=== PATIENT | male | born 1960 | race Caucasian/White ===

== ENCOUNTER 2018-07-13 00:34 | Inpatient (IN) | payer MEDICARE, OTHER ==
[2018-07-13 01:48] LABS: ADD MAN DIFF? NO
[2018-07-13 01:50] LABS: WHITE BLOOD COUNT 8.9 10^3/ul (4.8-10.8)
[2018-07-13 01:50] LABS: BASOPHIL # 0.1 10^3/ul (0.0-0.1); BASOPHILS % 1.3 % (0.0-2.0); EOSINOPHILS # 0.6 10^3/ul (0.0-0.5); EOSINOPHILS % 6.7 % (0.0-7.0); HEMATOCRIT 21.6 % (42.0-52.0); HEMOGLOBIN 7.3 g/dl (14.0-18.0); LYMPHOCYTES # 1.8 10^3/ul (0.8-2.9); LYMPHOCYTES % 20.5 % (15.0-51.0); MEAN CORPUSCULAR HEMOGLOBIN 30.7 pg (29.0-33.0); MEAN CORPUSCULAR HGB CONC 33.8 g/dl (32.0-37.0); MEAN CORPUSCULAR VOLUME 90.8 fl (82.0-101.0); MEAN PLATELET VOLUME 10.3 fl (7.4-10.4); MONOCYTE # 0.7 10^3/ul (0.3-0.9); MONOCYTES % 7.8 % (0.0-11.0); NEUTROPHIL # 5.7 10^3/ul (1.6-7.5); NEUTROPHILS % 63.4 % (39.0-77.0); PLATELET COUNT 220 10^3/UL (140-415); RED BLOOD COUNT 2.38 10^6/ul (4.70-6.10); RED CELL DISTRIBUTION WIDTH 13.4 % (11.5-14.5)
[2018-07-13 02:07] LABS: ALANINE AMINOTRANSFERASE 16 IU/L (13-69); ALBUMIN 2.9 g/dl (3.3-4.9); ALBUMIN/GLOBULIN RATIO 0.85; ALKALINE PHOSPHATASE 118 IU/L (42-121); ANION GAP 14 (5-13); ASPARTATE AMINO TRANSFERASE 15 IU/L (15-46); BILIRUBIN,INDIRECT 0.1 mg/dl (0-1.1); BILIRUBIN,TOTAL 0.1 mg/dl (0.2-1.3); BLOOD UREA NITROGEN 80 mg/dl (7-20); CALCIUM 7.5 mg/dl (8.4-10.2); CARBON DIOXIDE 16 mmol/L (21-31); CHLORIDE 110 mmol/L (97-110); CREATININE 9.53 mg/dl (0.61-1.24); Estimated GFR 6 mL/min (>60); GLUCOSE 98 mg/dl (70-220); SODIUM 140 mmol/L (135-144); TOTAL PROTEIN 6.3 g/dl (6.1-8.1)
[2018-07-13 02:19] LABS: B-TYPE NATRIURETIC PEPTIDE 15500 PG/ML (0-125); TROPONIN-I < 0.012 ng/ml (0.000-0.120)
[2018-07-13] MEDS: INSULIN REGULAR, HUMAN 100 UNIT/1 ML 3ML VIAL IVP (02:26)
[2018-07-13] MEDS: CA CHLORIDE 10% 10 ML SYRINGE IV (02:26)
[2018-07-13] MEDS: DEXTROSE 50% 50 ML SYRINGE IV (02:30)
[2018-07-13] MEDS ORDERED: DEXTROSE 50% 50 ML SYRINGE IV ×3 (02:30→13:00)
[2018-07-13] MEDS ORDERED: ONDANSETRON 4 MG INJ IV (03:00)
[2018-07-13] MEDS ORDERED: ACETAMINOPHEN 325 MG TAB PO ×2 (03:00→03:30)
[2018-07-13] MEDS ORDERED: NACL 0.9% 3 ML SYG IV (03:30)
[2018-07-13] MEDS ORDERED: BISACODYL (EC) 5 MG TAB PO (03:30)
[2018-07-13] MEDS ORDERED: DOCUSATE SODIUM 100 MG CAP PO (03:30)
[2018-07-13] MEDS: FUROSEMIDE 40 MG INJ IV ×2 (03:57→05:42)
[2018-07-13] MEDS: ALBUTEROL/IPRATROPIUM (NEB) 3 ML AMP HHN ×2 (04:41→04:45)
[2018-07-13] MEDS: METOLAZONE 2.5 MG TAB PO (05:00)
[2018-07-13] MEDS ORDERED: HEPARIN 5,000 UNIT/0.5 ML VIAL ×3 (06:41→21:36)
[2018-07-13 06:42] LABS: HEMOGLOBIN A1C 6.1 % (0-5.9)
[2018-07-13 06:48] LABS: IRON 28 ug/dl (35-150)
[2018-07-13 06:49] LABS: MAGNESIUM 2.2 mg/dl (1.7-2.5)
[2018-07-13] MEDS: HEPARIN 5,000 UNIT/1 ML VIAL SC ×3 (06:49→21:53)
[2018-07-13 06:58] LABS: % IRON SATURATION 11 % SAT (22-52); TOTAL IRON BINDING CAPACITY 266 ug/dl (241-421)
[2018-07-13 07:19] LABS: HEPATITIS B SURFACE ANTIGEN NEGATIVE (NEGATIVE)
[2018-07-13 07:24] LABS: FERRITIN 86.6 ng/ml (11.1-264.0)
[2018-07-13 07:36] LABS: HEPATITIS B CORE ANTIBODY NEGATIVE (NEGATIVE); HEPATITIS C VIRAL ANTIBODY NEGATIVE (NEGATIVE); HIV 1&2 ANTIBODY NEGATIVE (NEGATIVE)
[2018-07-13 07:45] LABS: HEPATITIS B SURFACE ANTIBODY NEGATIVE (NEGATIVE)
[2018-07-13 07:52] LABS: URIC ACID 7.3 mg/dl (3.1-7.9)
[2018-07-13 07:52] LABS: CREATINE KINASE 663 IU/L (23-200)
[2018-07-13] MEDS: SODIUM BICARBONATE (IV ADD) 100 MEQ in DEXTROSE 5% 1,000 ML IV (08:48)
[2018-07-13] MEDS: BUMETANIDE 2 MG in DEXTROSE 5% 17 ML IVPB ×2 (08:48→17:29)
[2018-07-13] MEDS ORDERED: SODIUM CHLORIDE 0.9% 1L BAG IV (09:30)
[2018-07-13] MEDS ORDERED: ALBUMIN HUMAN 25% 100 ML IV (09:30)
[2018-07-13 09:48] LABS: AADO2 Arterial 168.6 mmHg (7.0-24.0); Allen Test ACCEPTAB; Arterial Base Excess -7.1 mmol/L (-3.0-3); Arterial Blood Gas Oxygen Sat 93.7 mmHG (95.0-98.0); Arterial COHb 1.3 % (0.0-3.0); Arterial Fraction of Oxyhgb 92.2 % (93.0-99.0); Arterial HCO3 17.6 mmol/L (22.0-26.0); Arterial MetHb 0.3 % (0.0-1.5); Arterial Total Hemglobin 6.2 g/dl (12.0-18.0); Arterial pCO2 31.7 mmhg (35-45); MODE NASAL CANNULA; Site Right Radial
[2018-07-13 10:29] LABS: HAAIG REFLEX REFLEX FILED
[2018-07-13 10:51] LABS: ALANINE AMINOTRANSFERASE 18 IU/L (13-69); ALBUMIN 2.8 g/dl (3.3-4.9); ALKALINE PHOSPHATASE 102 IU/L (42-121); ANION GAP 12 (5-13); ASPARTATE AMINO TRANSFERASE 13 IU/L (15-46); BILIRUBIN,INDIRECT 0.2 mg/dl (0-1.1); BILIRUBIN,TOTAL 0.2 mg/dl (0.2-1.3); BLOOD UREA NITROGEN 81 mg/dl (7-20); CALCIUM 7.3 mg/dl (8.4-10.2); CARBON DIOXIDE 18 mmol/L (21-31); CHLORIDE 109 mmol/L (97-110); CREATININE 9.66 mg/dl (0.61-1.24); Estimated GFR 6 mL/min (>60); GLUCOSE 95 mg/dl (70-220); POTASSIUM 5.5 mmol/L (3.5-5.1); SODIUM 139 mmol/L (135-144); TOTAL PROTEIN 5.9 g/dl (6.1-8.1)
[2018-07-13 10:52] LABS: INR 1.06; PARTIAL THROMBOPLASTIN TIME 36.7 Sec (23.0-35.0); PROTIME 13.9 Sec (11.9-14.9); PT RATIO 1.1
[2018-07-13 11:30] LABS: HEPATITIS B SURFACE ANTIGEN NEGATIVE (NEGATIVE)
[2018-07-13 11:47] LABS: HEPATITIS B CORE ANTIBODY NEGATIVE (NEGATIVE); HEPATITIS C VIRAL ANTIBODY NEGATIVE (NEGATIVE); HIV 1&2 ANTIBODY NEGATIVE (NEGATIVE)
[2018-07-13] MEDS ORDERED: GLUCOSE GEL 15 GRAM TUBE BUCCAL (13:00)
[2018-07-13] MEDS ORDERED: GLUCAGON 1 MG INJ IM (13:00)
[2018-07-13] MEDS ORDERED: GLUCOSE GEL 15 GRAM TUBE PO ×2 (13:00)
[2018-07-13 13:02] LABS: ADD UMIC YES; UR AMORPHOUS CRYSTAL FEW /HPF (NONE SEEN); UR ASCORBIC ACID NEGATIVE (NEGATIVE); UR BILIRUBIN (Dip) NEGATIVE (NEGATIVE); UR BLOOD (Dip) 1+ mg/dL (NEGATIVE); UR CLARITY CLEAR (CLEAR); UR COLOR STRAW (YELLOW); UR GLUCOSE (Dip) 1+ mg/dL (NEGATIVE); UR HYALINE CAST FEW /HPF (NONE SEEN); UR KETONES (Dip) NEGATIVE (NEGATIVE); UR LEUKOCYTE ESTERASE (Dip) NEGATIVE Leu/ul (NEGATIVE); UR NITRITE (Dip) NEGATIVE (NEGATIVE); UR RBC 1 /HPF (0-5); UR SPECIFIC GRAVITY (Dip) 1.011 (1.003-1.030); UR TOTAL PROTEIN (Dip) 3+ mg/dl (NEGATIVE); UR UROBILINOGEN (Dip) NEGATIVE (NEGATIVE); UR WBC 1 /HPF (0-5)
[2018-07-13] MEDS: METOLAZONE 5 MG TAB PO (15:38)
[2018-07-13] MEDS: SOD FERRIC GLUC COMPLX 125 MG in SOD CHLORIDE 0.9% 100 ML IVPB (16:06)
[2018-07-13] MEDS ORDERED: SOD FERRIC GLUC COMPLX 125 MG in SOD CHLORIDE 0.9% 100 ML IVPB (17:00)
[2018-07-13] MEDS: EPOETIN 10000 UNITS/1 ML INJ (ESRD) SC (17:28)
[2018-07-13] MEDS: INSULIN ASPART [NOVOLOG] 3 ML PEN SC ×2 (18:01→21:00)
[2018-07-14] MEDS: SODIUM BICARBONATE (IV ADD) 100 MEQ in DEXTROSE 5% 1,000 ML IV (01:21)
[2018-07-14] MEDS: hydrALAzine 20 MG INJ IV ×3 (01:23→21:09)
[2018-07-14] MEDS: HEPARIN 1000 UNITS/ML 10 ML INJ CATHETER ×2 (03:06→11:46)
[2018-07-14] MEDS ORDERED: HEPARIN 5,000 UNIT/0.5 ML VIAL (05:44)
[2018-07-14] MEDS: BUMETANIDE 2 MG in DEXTROSE 5% 17 ML IVPB ×2 (05:55→18:16)
[2018-07-14] MEDS: HEPARIN 5,000 UNIT/1 ML VIAL SC (05:58)
[2018-07-14 06:06] LABS: ADD MAN DIFF? NO
[2018-07-14 06:12] LABS: WHITE BLOOD COUNT 8.4 10^3/ul (4.8-10.8)
[2018-07-14 06:12] LABS: BASOPHIL # 0.1 10^3/ul (0.0-0.1); BASOPHILS % 1.2 % (0.0-2.0); EOSINOPHILS # 0.4 10^3/ul (0.0-0.5); EOSINOPHILS % 4.7 % (0.0-7.0); HEMATOCRIT 21.5 % (42.0-52.0); HEMOGLOBIN 7.4 g/dl (14.0-18.0); LYMPHOCYTES # 1.5 10^3/ul (0.8-2.9); LYMPHOCYTES % 17.6 % (15.0-51.0); MEAN CORPUSCULAR HEMOGLOBIN 30.6 pg (29.0-33.0); MEAN CORPUSCULAR HGB CONC 34.4 g/dl (32.0-37.0); MEAN CORPUSCULAR VOLUME 88.8 fl (82.0-101.0); MEAN PLATELET VOLUME 11.2 fl (7.4-10.4); MONOCYTE # 1.1 10^3/ul (0.3-0.9); MONOCYTES % 12.6 % (0.0-11.0); NEUTROPHIL # 5.3 10^3/ul (1.6-7.5); NEUTROPHILS % 63.1 % (39.0-77.0); PLATELET COUNT 218 10^3/UL (140-415); RED BLOOD COUNT 2.42 10^6/ul (4.70-6.10); RED CELL DISTRIBUTION WIDTH 13.1 % (11.5-14.5)
[2018-07-14 06:55] LABS: ALANINE AMINOTRANSFERASE 20 IU/L (13-69); ALBUMIN 2.7 g/dl (3.3-4.9); ALBUMIN/GLOBULIN RATIO 0.84; ALKALINE PHOSPHATASE 105 IU/L (42-121); ANION GAP 11 (5-13); ASPARTATE AMINO TRANSFERASE 14 IU/L (15-46); BILIRUBIN,INDIRECT 0.2 mg/dl (0-1.1); BILIRUBIN,TOTAL 0.2 mg/dl (0.2-1.3); BLOOD UREA NITROGEN 61 mg/dl (7-20); CALCIUM 7.5 mg/dl (8.4-10.2); CARBON DIOXIDE 21 mmol/L (21-31); CHLORIDE 106 mmol/L (97-110); CREATININE 7.79 mg/dl (0.61-1.24); Estimated GFR 7 mL/min (>60); GLUCOSE 68 mg/dl (70-220); POTASSIUM 4.5 mmol/L (3.5-5.1); SODIUM 138 mmol/L (135-144); TOTAL PROTEIN 5.9 g/dl (6.1-8.1)
[2018-07-14] MEDS: INSULIN ASPART [NOVOLOG] 3 ML PEN SC ×5 (07:46→21:00)
[2018-07-14] MEDS: AMLODIPINE 10 MG TAB PO (11:48)
[2018-07-14] MEDS: SOD FERRIC GLUC COMPLX 125 MG in SOD CHLORIDE 0.9% 100 ML IVPB (16:41)
[2018-07-14] MEDS: EPOETIN 10000 UNITS/1 ML INJ (ESRD) SC (16:43)
[2018-07-15] MEDS: LABETALOL HCL 20MG INJ IV (00:32)
[2018-07-15] MEDS ORDERED: ALBUTEROL/IPRATROPIUM (NEB) 3 ML AMP HHN (03:00)
[2018-07-15] MEDS: GUAIFENESIN 20 MG/ML 5ML CUP PO (03:33)
[2018-07-15] MEDS: ONDANSETRON 4 MG INJ IV (03:33)
[2018-07-15] MEDS: BUMETANIDE 2 MG in DEXTROSE 5% 17 ML IVPB ×2 (06:24→18:15)
[2018-07-15 07:04] LABS: ADD MAN DIFF? NO
[2018-07-15 07:09] LABS: WHITE BLOOD COUNT 7.1 10^3/ul (4.8-10.8)
[2018-07-15 07:09] LABS: BASOPHIL # 0.1 10^3/ul (0.0-0.1); BASOPHILS % 1.4 % (0.0-2.0); EOSINOPHILS # 0.2 10^3/ul (0.0-0.5); EOSINOPHILS % 3.4 % (0.0-7.0); HEMATOCRIT 21.6 % (42.0-52.0); HEMOGLOBIN 7.3 g/dl (14.0-18.0); LYMPHOCYTES # 1.8 10^3/ul (0.8-2.9); MEAN CORPUSCULAR HEMOGLOBIN 30.4 pg (29.0-33.0); MEAN CORPUSCULAR HGB CONC 33.8 g/dl (32.0-37.0); MEAN PLATELET VOLUME 11.3 fl (7.4-10.4); MONOCYTE # 1.1 10^3/ul (0.3-0.9); MONOCYTES % 15.5 % (0.0-11.0); NEUTROPHIL # 3.8 10^3/ul (1.6-7.5); NEUTROPHILS % 53.3 % (39.0-77.0); PLATELET COUNT 194 10^3/UL (140-415); RED CELL DISTRIBUTION WIDTH 13.2 % (11.5-14.5)
[2018-07-15 07:50] LABS: ANION GAP 7 (5-13); BLOOD UREA NITROGEN 42 mg/dl (7-20); CALCIUM 7.1 mg/dl (8.4-10.2); CARBON DIOXIDE 27 mmol/L (21-31); CHLORIDE 103 mmol/L (97-110); CREATININE 5.56 mg/dl (0.61-1.24); Estimated GFR 11 mL/min (>60); GLUCOSE 87 mg/dl (70-220); MAGNESIUM 1.9 mg/dl (1.7-2.5); PHOSPHORUS 5.7 mg/dl (2.5-4.9); SODIUM 137 mmol/L (135-144)
[2018-07-15] MEDS: INSULIN ASPART [NOVOLOG] 3 ML PEN SC ×4 (07:55→21:00)
[2018-07-15] MEDS: ASPIRIN 81 MG TAB PO (12:36)
[2018-07-15] MEDS: AMLODIPINE 10 MG TAB PO (12:37)
[2018-07-15] MEDS: CALCIUM ACETATE 667 MG CAP PO ×2 (12:37→17:25)
[2018-07-15] MEDS: HEPARIN 1000 UNITS/ML 10 ML INJ CATHETER (12:41)
[2018-07-15] MEDS: DEXTROSE 5%-0.45% NACL 1,000 ML IV (14:30)
[2018-07-15] MEDS: SOD FERRIC GLUC COMPLX 125 MG in SOD CHLORIDE 0.9% 100 ML IVPB (16:01)
[2018-07-15] MEDS: morphine 2 MG INJ IV (18:16)
[2018-07-15] MEDS: ATORVASTATIN 20 MG TAB PO (21:08)
[2018-07-15] MEDS: LORAZEPAM 2 MG INJ IV (21:12)
[2018-07-16] MEDS: hydrALAzine 20 MG INJ IV ×3 (00:07→17:00)
[2018-07-16] MEDS: DEXTROSE 5%-0.45% NACL 1,000 ML IV ×2 (00:09→10:30)
[2018-07-16] MEDS: BUMETANIDE 2 MG in DEXTROSE 5% 17 ML IVPB (05:48)
[2018-07-16 06:34] LABS: ADD MAN DIFF? NO
[2018-07-16 06:38] LABS: WHITE BLOOD COUNT 10.1 10^3/ul (4.8-10.8)
[2018-07-16 06:38] LABS: ABNORMAL IP MESSAGE 1; BASOPHIL # 0.1 10^3/ul (0.0-0.1); BASOPHILS % 0.9 % (0.0-2.0); EOSINOPHILS # 0.6 10^3/ul (0.0-0.5); EOSINOPHILS % 5.9 % (0.0-7.0); HEMATOCRIT 22.6 % (42.0-52.0); HEMOGLOBIN 7.4 g/dl (14.0-18.0); LYMPHOCYTES # 2.5 10^3/ul (0.8-2.9); MEAN CORPUSCULAR HEMOGLOBIN 29.8 pg (29.0-33.0); MEAN CORPUSCULAR HGB CONC 32.7 g/dl (32.0-37.0); MEAN CORPUSCULAR VOLUME 91.1 fl (82.0-101.0); MEAN PLATELET VOLUME 11.2 fl (7.4-10.4); MONOCYTE # 1.6 10^3/ul (0.3-0.9); MONOCYTES % 15.7 % (0.0-11.0); NEUTROPHIL # 5.2 10^3/ul (1.6-7.5); NEUTROPHILS % 51.2 % (39.0-77.0); PLATELET COUNT 194 10^3/UL (140-415); POSITIVE DIFF @See below; RED BLOOD COUNT 2.48 10^6/ul (4.70-6.10); RED CELL DISTRIBUTION WIDTH 13.3 % (11.5-14.5)
[2018-07-16 07:00] LABS: ANION GAP 7 (5-13); BLOOD UREA NITROGEN 27 mg/dl (7-20); CALCIUM 7.7 mg/dl (8.4-10.2); CARBON DIOXIDE 29 mmol/L (21-31); CHLORIDE 103 mmol/L (97-110); Estimated GFR 14 mL/min (>60); GLUCOSE 92 mg/dl (70-220); MAGNESIUM 1.8 mg/dl (1.7-2.5); POTASSIUM 3.9 mmol/L (3.5-5.1); SODIUM 139 mmol/L (135-144)
[2018-07-16] MEDS: CALCIUM ACETATE 667 MG CAP PO ×3 (07:41→18:25)
[2018-07-16] MEDS: INSULIN ASPART [NOVOLOG] 3 ML PEN SC ×4 (07:41→19:45)
[2018-07-16] MEDS: ASPIRIN 81 MG TAB PO (08:28)
[2018-07-16] MEDS: AMLODIPINE 10 MG TAB PO (08:28)
[2018-07-16] MEDS ORDERED: HEPARIN 1000 UNITS/ML 10 ML INJ (11:56)
[2018-07-16] MEDS ORDERED: HEPARIN 1000 UNITS/NS (A-LINE) 1,000 ML (11:56)
[2018-07-16] MEDS ORDERED: MIDAZOLAM 1 MG/ML 2 ML INJ (11:56)
[2018-07-16] MEDS ORDERED: LIDOCAINE 2% (MDV) 20 ML INJ (11:57)
[2018-07-16] MEDS ORDERED: FENTAnyl 50 MCG/ML VIAL (11:57)
[2018-07-16] MEDS: HEPARIN 1000 UNITS/ML 10 ML INJ CATHETER (18:21)
[2018-07-16] MEDS: SOD FERRIC GLUC COMPLX 125 MG in SOD CHLORIDE 0.9% 100 ML IVPB (18:24)
[2018-07-16] MEDS: FUROSEMIDE 20 MG TAB PO (18:25)
[2018-07-16] MEDS: EPOETIN 10000 UNITS/1 ML INJ (ESRD) SC (18:26)
[2018-07-16] MEDS: LORAZEPAM 2 MG INJ IV (18:28)
[2018-07-16] MEDS: ATORVASTATIN 20 MG TAB PO (20:29)
[2018-07-16] MEDS: morphine 2 MG INJ IV (21:46)
[2018-07-17] MEDS: ONDANSETRON 4 MG INJ IV (00:09)
[2018-07-17] MEDS: LORAZEPAM 2 MG INJ IV ×2 (01:41→08:59)
[2018-07-17 05:58] LABS: ADD MAN DIFF? NO
[2018-07-17 06:00] LABS: ABNORMAL IP MESSAGE 1; BASOPHIL # 0.1 10^3/ul (0.0-0.1); BASOPHILS % 1.1 % (0.0-2.0); EOSINOPHILS # 0.6 10^3/ul (0.0-0.5); EOSINOPHILS % 5.8 % (0.0-7.0); HEMATOCRIT 23.4 % (42.0-52.0); HEMOGLOBIN 7.7 g/dl (14.0-18.0); LYMPHOCYTES % 19.4 % (15.0-51.0); MEAN CORPUSCULAR HEMOGLOBIN 30.1 pg (29.0-33.0); MEAN CORPUSCULAR HGB CONC 32.9 g/dl (32.0-37.0); MEAN CORPUSCULAR VOLUME 91.4 fl (82.0-101.0); MONOCYTE # 1.6 10^3/ul (0.3-0.9); MONOCYTES % 15.3 % (0.0-11.0); NEUTROPHIL # 5.9 10^3/ul (1.6-7.5); NEUTROPHILS % 57.7 % (39.0-77.0); PLATELET COUNT 210 10^3/UL (140-415); POSITIVE DIFF @See below; RED BLOOD COUNT 2.56 10^6/ul (4.70-6.10); RED CELL DISTRIBUTION WIDTH 13.2 % (11.5-14.5)
[2018-07-17 06:00] LABS: WHITE BLOOD COUNT 10.2 10^3/ul (4.8-10.8)
[2018-07-17] MEDS: FUROSEMIDE 20 MG TAB PO ×2 (06:22→17:56)
[2018-07-17 06:33] LABS: ANION GAP 6 (5-13); BLOOD UREA NITROGEN 16 mg/dl (7-20); CALCIUM 7.9 mg/dl (8.4-10.2); CARBON DIOXIDE 31 mmol/L (21-31); CHLORIDE 100 mmol/L (97-110); CREATININE 3.45 mg/dl (0.61-1.24); Estimated GFR 19 mL/min (>60); GLUCOSE 93 mg/dl (70-220); MAGNESIUM 1.8 mg/dl (1.7-2.5); PHOSPHORUS 3.4 mg/dl (2.5-4.9); POTASSIUM 3.9 mmol/L (3.5-5.1); SODIUM 137 mmol/L (135-144)
[2018-07-17] MEDS: INSULIN ASPART [NOVOLOG] 3 ML PEN SC ×3 (08:00→17:41)
[2018-07-17] MEDS: CALCIUM ACETATE 667 MG CAP PO ×3 (09:04→17:55)
[2018-07-17] MEDS: ASPIRIN 81 MG TAB PO (09:04)
[2018-07-17] MEDS: AMLODIPINE 10 MG TAB PO (09:04)
[2018-07-17] MEDS: SOD FERRIC GLUC COMPLX 125 MG in SOD CHLORIDE 0.9% 100 ML IVPB (17:55)
== END 2018-07-17 21:00 | disposition home or self-care (01) | DRG 291 ==
LOC: PP2 07-17 01:13 → E/R 00:34 → TEL 02:43
PROVIDERS: Family Medicine
PROC: 0JH63XZ Insertion of Tunneled Vascular Access Device into Chest Subcutaneous Tissue and Fascia, Percutaneous Approach (ICD-10-PCS; principal; 2018-07-16 11:30)
PROC: 02HV33Z Insertion of Infusion Device into Superior Vena Cava, Percutaneous Approach (ICD-10-PCS; 2018-07-16 11:30)
PROC: B518YZA Fluoroscopy of Superior Vena Cava using Other Contrast, Guidance (ICD-10-PCS; 2018-07-16 11:30)
PROC: 06HM33Z Insertion of Infusion Device into Right Femoral Vein, Percutaneous Approach (ICD-10-PCS; 2018-07-16 11:55)
PROC: 5A1D70Z Performance of Urinary Filtration, Intermittent, Less than 6 Hours Per Day (ICD-10-PCS; 2018-07-16 11:55)
DX: I13.2 Hypertensive heart and chronic kidney disease with heart failure and with stage 5 chronic kidney disease, or end stage renal disease (principal); J96.00 Acute respiratory failure, unspecified whether with hypoxia or hypercapnia; N18.6 End stage renal disease; I50.33 Acute on chronic diastolic (congestive) heart failure; E87.2 Acidosis; N17.9 Acute kidney failure, unspecified; D63.1 Anemia in chronic kidney disease; E87.5 Hyperkalemia; E87.70 Fluid overload, unspecified; E11.22 Type 2 diabetes mellitus with diabetic chronic kidney disease; E11.21 Type 2 diabetes mellitus with diabetic nephropathy; F17.200 Nicotine dependence, unspecified, uncomplicated; Z99.2 Dependence on renal dialysis
CPT/HCPCS: 36415; 36558; 36600; 71045; 76775; 80048; 80053; 81001; 82550; 82728; 82803; 82962; 83036; 83540; 83735; 83880; 84100; 84443; 84484; 84560; 85025; 85610; 85730; 86703; 86704; 86706; 86708; 86709; 86803; 87081; 87086; 87340; 90935; 93005; 93306; 94644; 94664; 97116; 97161; 97530; 99285-25

== ENCOUNTER 2019-04-26 01:18 | Emergency (ER) | payer MEDICARE, OTHER ==
[2019-04-26 03:49] LABS: ADD MAN DIFF? NO
[2019-04-26 04:05] LABS: BASOPHIL # 0.1 10^3/ul (0.0-0.1); BASOPHILS % 1.2 % (0.0-2.0); EOSINOPHILS # 0.4 10^3/ul (0.0-0.5); EOSINOPHILS % 4.2 % (0.0-7.0); HEMATOCRIT 31.7 % (42.0-52.0); HEMOGLOBIN 10.5 g/dl (14.0-18.0); LYMPHOCYTES # 3.3 10^3/ul (0.8-2.9); LYMPHOCYTES % 35.9 % (15.0-51.0); MEAN CORPUSCULAR HEMOGLOBIN 31.8 pg (29.0-33.0); MEAN CORPUSCULAR HGB CONC 33.1 g/dl (32.0-37.0); MEAN CORPUSCULAR VOLUME 96.1 fl (82.0-101.0); MEAN PLATELET VOLUME 11.7 fl (7.4-10.4); MONOCYTES % 11.4 % (0.0-11.0); NEUTROPHIL # 4.3 10^3/ul (1.6-7.5); PLATELET COUNT 166 10^3/UL (140-415); RED CELL DISTRIBUTION WIDTH 12.6 % (11.5-14.5)
[2019-04-26 04:05] LABS: WHITE BLOOD COUNT 9.1 10^3/ul (4.8-10.8)
[2019-04-26 04:06] LABS: ANION GAP 9 (5-13); BLOOD UREA NITROGEN 55 mg/dl (7-20); CALCIUM 7.5 mg/dl (8.4-10.2); CARBON DIOXIDE 33 mmol/L (21-31); CHLORIDE 95 mmol/L (97-110); CREATININE 7.79 mg/dl (0.61-1.24); Estimated GFR 7 mL/min (>60); GLUCOSE 152 mg/dl (70-220); POTASSIUM 3.7 mmol/L (3.5-5.1); SODIUM 137 mmol/L (135-144)
[2019-04-26] MEDS: NICARDipine HCL 30 MG CAPSULE PO (05:31)
== END 2019-04-26 05:50 | disposition home or self-care (01) ==
LOC: E/R 01:18
DX: R06.02 Shortness of breath (principal); I50.9 Heart failure, unspecified; I11.0 Hypertensive heart disease with heart failure; Z79.82 Long term (current) use of aspirin
CPT/HCPCS: 71045; 80048; 85025; 99284-25